=== PATIENT | female | born 1985 | race African-American/Black ===

== ENCOUNTER 2019-08-31 07:25 | Inpatient (IN) | payer OTHER ==
[~2019-08-31] VITALS: Ht 162.6 cm; Wt 110.7 kg
[2019-08-31] MEDS ORDERED: LACTATED RINGERS 1,000 ML IV SCH (08:35)
[2019-08-31] MEDS ORDERED: OXYTOCIN 20 UNITS in LACTATED RINGERS 1,000 ML IV SCH (08:35)
[2019-08-31 09:22] VITALS: BP 130/78
[2019-08-31 09:22] LABS: BASOPHILS % (AUTO) 0.1 % (0.0-2.0); EOSINOPHILS % (AUTO) 0.2 % (0.0-4.0); HEMATOCRIT 35.6 % (36-48); HEMOGLOBIN 11.8 g/dL (12.0-16.0); LYMPHOCYTES # (AUTO) 1.3 K/uL (2.5-16.5); MEAN CORPUSCULAR HEMOGLOBIN 28 pg (27-31); MEAN CORPUSCULAR HGB CONC 33 g/dL (33-37); MEAN CORPUSCULAR VOLUME 84.7 fL (80-94); MONOCYTES # (AUTO) 0.7 K/uL (0.8-1.0); MONOCYTES % (AUTO) 8.7 % (1.7-9.3); NEUTROPHILS # (AUTO) 6.5 K/uL (1.8-7.7); PLATELET COUNT (AUTO) 235 K/uL (140-450); RED CELL DISTRIBUTION WIDTH 15.9 % (11.6-13.7); WHITE BLOOD COUNT (AUTO) 8.5 K/uL (4.8-10.8)
[2019-08-31 09:24] LABS: BILIRUBIN,URINE NEGATIVE (NEGATIVE); BLOOD, URINE NEGATIVE (NEGATIVE); COLOR,URINE YELLOW (YELLOW); LEUKOCYTE ESTERASE ,URINE TRACE (NEGATIVE); NITRITE, URINE NEGATIVE (NEGATIVE); UGLUCOSE NEGATIVE (NEGATIVE)
[2019-08-31 09:32] LABS: APPEARANCE,URINE CLEAR (CLEAR); RBC,URINE 0-5 /HPF (0-5); WBC,URINE 0-5 /HPF (0-5)
[2019-08-31] MEDS ORDERED: MISOPROSTOL 25 MCG TAB ONE (09:42)
[2019-08-31] MEDS: MISOPROSTOL 25 MCG TAB VG SCH ×2 (09:47→14:11)
[2019-08-31 09:53] LABS: ALBUMIN 2.8 g/dL (3.4-5.0); ANION GAP 12.5 (8-16); CARBON DIOXIDE 24.7 mmol/L (21-32); CREATININE 0.8 mg/dL (0.6-1.3); POTASSIUM 4.2 mmol/L (3.5-5.1); TOTAL BILIRUBIN 0.2 mg/dL (0.0-1.0)
[2019-08-31] MEDS ORDERED: NOVN SUBQ ×2 (10:26→10:27)
[2019-08-31] MEDS ORDERED: PREN-380 PO (10:26)
[2019-08-31] MEDS ORDERED: AMPICILLIN 2,000 MG VIAL ONE (10:28)
[2019-08-31] MEDS ORDERED: AMPICILLIN 2,000 MG in NACL 0.9% 100 ML IV SCH (11:00)
[2019-08-31] MEDS ORDERED: AMPICILLIN 1,000 MG VIAL ONE ×3 (14:49→22:42)
[2019-08-31] MEDS: AMPICILLIN 1,000 MG in NACL 0.9% 50 ML IV SCH ×3 (15:01→22:59)
[2019-08-31] MEDS ORDERED: MORPHINE SULFATE 2 MG/ML SYR IVP PRN (18:15)
[2019-08-31] MEDS ORDERED: MORPHINE SULFATE 10 MG/ML VIAL ONE (18:15)
[2019-08-31 18:20] VITALS: BP 121/69
[2019-08-31] MEDS ORDERED: OXYTOCIN 20 UNITS/LR PREMIX 1,000 ML IV ONE (20:25)
[2019-08-31] MEDS ORDERED: INSULIN NPH HUMAN ISOPHANE 100 UNIT/ML VIAL SUBQ SCH (21:00)
[2019-08-31] MEDS ORDERED: fentaNYL 0.05 MG/ML VIAL ONE (21:12)
[2019-08-31] MEDS ORDERED: ROPIVACAINE 0.2%/NS PREMIX 200 ML EPI ONE (21:14)
[2019-09-01] MEDS ORDERED: CITRIC ACID/SODIUM CITRATE 30 ML UDC PO SCH (00:25)
[2019-09-01] MEDS ORDERED: MORPHINE SULFATE 4 MG/ML SYR ONE (00:49)
[2019-09-01] MEDS ORDERED: ePHEDrine 50 MG/ML VIAL ONE (00:49)
[2019-09-01] MEDS ORDERED: LIDOCAINE/EPI MPF 2%1:200000 10 ML VIAL INJ ONE (00:51)
[2019-09-01] MEDS ORDERED: MORPHINE PRES FREE 10 MG/10 ML AMP IV ONE (00:52)
[2019-09-01] MEDS ORDERED: SODIUM BICARBONATE 8.4% PFS 50 MEQ/50 ML SYR IVP ONE (00:52)
[2019-09-01] MEDS ORDERED: ceFAZolin 1,000 MG VIAL ONE (01:13)
[2019-09-01] MEDS ORDERED: TEMAZEPAM 15 MG CAP PO PRN (01:15)
[2019-09-01] MEDS ORDERED: METHYLERGONOVINE 0.2 MG/ML AMP IM PRN (01:15)
[2019-09-01] MEDS ORDERED: MAGNESIUM CITRATE 300 ML BTL PO SCH (01:15)
[2019-09-01] MEDS ORDERED: diphenhydrAMINE 50 MG/ML VIAL ONE (01:24)
[2019-09-01] MEDS ORDERED: ONDANSETRON 4 MG/2 ML VIAL ONE (01:24)
[2019-09-01] MEDS ORDERED: OXYTOCIN 20 UNITS/LR PREMIX 1,000 ML IV ONE (01:24)
[2019-09-01] MEDS ORDERED: NALBUPHINE 10 MG/ML AMP IVP PRN (01:35)
[2019-09-01] MEDS ORDERED: diphenhydrAMINE 50 MG/ML VIAL IVP PRN (01:35)
[2019-09-01] MEDS ORDERED: ONDANSETRON 4 MG/2 ML VIAL IVP PRN ×2 (01:35)
[2019-09-01] MEDS ORDERED: NALOXONE 0.4 MG/ML VIAL IVP PRN ×3 (01:35)
[2019-09-01] MEDS ORDERED: KETOROLAC 30 MG/ML VIAL IVP PRN (01:35)
[2019-09-01] MEDS: KETOROLAC 30 MG/ML VIAL IVP PRN ×3 (04:33→19:56)
[2019-09-01] MEDS ORDERED: BLOOD GLUCOSE MONITORING 1 DEV DEV FS SCH ×2 (06:00→07:30)
[2019-09-01] MEDS ORDERED: INSULIN NPH HUMAN ISOPHANE 100 UNIT/ML VIAL SUBQ SCH (06:30)
--- NOTE | 2019-09-01 08:44 | NUR ---
PATIENT HAS BEEN SCREENED AND CATEGORIZED LOW NUTRITION RISK. PATIENT WILL BE SEEN WITHIN 7 DAYS OF ADMISSION. 09/06/[address]
[2019-09-01] MEDS ORDERED: SODIUM PHOSPHATE 118 ML ENEM RC SCH (09:00)
[2019-09-01] MEDS: OXYTOCIN 20 UNITS in LACTATED RINGERS 1,000 ML IV SCH ×2 (09:33→17:34)
[2019-09-01] MEDS: SENNA 8.6 MG TAB PO SCH (21:21)
[2019-09-01] MEDS: DOCUSATE SOD/SENNA 50/8.6 MG 1 TAB PO SCH (21:23)
[2019-09-02] MEDS: oxyCODONE/APAP 5/325 MG 1 TAB TAB PO PRN ×5 (02:04→22:19)
[2019-09-02 06:23] LABS: BASOPHILS % (AUTO) 0.2 % (0.0-2.0); EOSINOPHILS % (AUTO) 0.4 % (0.0-4.0); HEMATOCRIT 31.9 % (36-48); HEMOGLOBIN 10.4 g/dL (12.0-16.0); LYMPHOCYTES # (AUTO) 1.3 K/uL (2.5-16.5); LYMPHOCYTES % (AUTO) 13.1 % (20.5-51.1); MEAN CORPUSCULAR HEMOGLOBIN 28 pg (27-31); MEAN CORPUSCULAR HGB CONC 33 g/dL (33-37); MONOCYTES % (AUTO) 9.9 % (1.7-9.3); NEUTROPHILS # (AUTO) 7.8 K/uL (1.8-7.7); NEUTROPHILS % (AUTO) 76.4 % (42.2-75.2); PLATELET COUNT (AUTO) 176 K/uL (140-450); RED BLOOD CELL COUNT(AUTO) 3.71 MIL/uL (4.20-5.40); RED CELL DISTRIBUTION WIDTH 15.6 % (11.6-13.7); WHITE BLOOD COUNT (AUTO) 10.2 K/uL (4.8-10.8)
[2019-09-02] MEDS: IBUPROFEN 800 MG TAB PO PRN ×2 (08:51→21:11)
[2019-09-02] MEDS: SIMETHICONE 80 MG TAB.CHEW PO PRN ×3 (08:56→18:11)
[2019-09-02] MEDS: DOCUSATE SOD/SENNA 50/8.6 MG 1 TAB PO SCH (21:00)
[2019-09-02] MEDS: SENNA 8.6 MG TAB PO SCH (21:00)
[2019-09-03] MEDS ORDERED: CAMERA MC ONE (03:17)
[2019-09-03] MEDS: oxyCODONE/APAP 5/325 MG 1 TAB TAB PO PRN ×4 (05:32→19:59)
[2019-09-03] MEDS: SIMETHICONE 80 MG TAB.CHEW PO PRN ×2 (09:00→17:54)
[2019-09-03 10:32] LABS: RAPID PLASMA REAGIN NON-REACTIVE (Non Reactiv)
[2019-09-03] MEDS ORDERED: FERR325E14 PO (11:20)
[2019-09-03] MEDS ORDERED: IBUP-2213 PO (11:21)
[2019-09-03] MEDS ORDERED: HYDR-5122 PO (11:22)
[2019-09-03] MEDS: SENNA 8.6 MG TAB PO SCH (21:00)
[2019-09-03] MEDS: DOCUSATE SOD/SENNA 50/8.6 MG 1 TAB PO SCH (21:00)
[2019-09-04] MEDS: oxyCODONE/APAP 5/325 MG 1 TAB TAB PO PRN (01:33)
[2019-09-04] MEDS: HYDROcodone/APAP 5/325 MG 1 TAB TAB PO PRN ×2 (05:46→11:26)
[2019-09-04] MEDS: SIMETHICONE 80 MG TAB.CHEW PO PRN (09:00)
[2019-09-04] MEDS: IBUPROFEN 800 MG TAB PO PRN (10:17)
== END 2019-09-04 14:00 | disposition home or self-care (01) | DRG 560 ==
LOC: MFCC 07:25
PROVIDERS: ADMIT Obstetrics & Gynecology; ATTEND Obstetrics & Gynecology
PROC: 3E0R3BZ Introduction of Anesthetic Agent into Spinal Canal, Percutaneous Approach (ICD-10-PCS; 2019-09-01)
PROC: 00HU33Z Insertion of Infusion Device into Spinal Canal, Percutaneous Approach (ICD-10-PCS; 2019-09-01)
PROC: 3E0P7VZ Introduction of Hormone into Female Reproductive, Via Natural or Artificial Opening (ICD-10-PCS; 2019-09-01)
PROC: 10E0XZZ Delivery of Products of Conception, External Approach (ICD-10-PCS; principal; 2019-09-01 00:45)
DX: O76 Abnormality in fetal heart rate and rhythm complicating labor and delivery (principal); O24.92 Unspecified diabetes mellitus in childbirth; O99.824 Streptococcus B carrier state complicating childbirth; O75.0 Maternal distress during labor and delivery; Z3A.38 38 weeks gestation of pregnancy; Z37.0 Single live birth
CPT/HCPCS: 36415; 51702; 59200; 80053; 81001; 82948; 85025; 86592; 86886; 86900; 86901; 88307; J0290; J0690; J1200; J1885; J2001; J2270; J2405; J2590; J2795; J3010; J7120